=== PATIENT | female | born 1940 | race Caucasian/White ===

== ENCOUNTER 2017-05-03 10:59 | Day surgery (SDC) | payer MEDICARE ==
[~2017-05-03 10:59] MED LIST: ACET-2404 PO; BET80 PO; CHOL10008 PO; LEVO75TA4 PO; LOSA50TA37 PO; LOVA40TA PO; MULT1CAP33 PO; OMPR20CCR PO; OXYB10TA PO; WARF5TAB PO; WARF5TAB7 PO
[2017-05-03] MEDS ORDERED: Lidocaine Topical 2% 30 mL Jelly ONE (11:09)
== END 2017-05-03 23:59 | disposition home or self-care (01) ==
LOC: END 10:59
PROVIDERS: ATTEND Internal Medicine Gastroenterology
DX: R49.0 Dysphonia (principal); R13.10 Dysphagia, unspecified